=== PATIENT | male | born 1950 | race African-American/Black ===

== ENCOUNTER 2018-06-14 16:41 | Inpatient (IN) | payer OTHER ==
[2018-06-14 19:35] VITALS: BMI 29.2
--- NOTE | 2018-06-14 20:02 | HP ---
CIWA Score Nausea/Vomitin-Mild Nausea/No Vomiting Muscle Tremors: 4-Moderate,w/Arms Extend Anxiety: 3 Agitation: 2 Paroxysmal Sweats: 2 Orientation: 0-Oriented Tacttile Disturbances: 0-None Auditory Disturbances: 0-None Visual Disturbances: 0-None Headache: 0-None Present CIWA-Ar Total Score: 12 - Admission Criteria OASAS Guidelines: Admission for Medically Managed Detox: Requires at least one of the followin. CIWA greater than 12 2. Seizures within the past 24 hours 3. Delirium tremens within the past 24 hours 4. Hallucinations within the past 24 hours 5. Acute intervention needed for co occurring medical disorder 6. Acute intervention needed for co occurring psychiatric disorder 7. Severe withdrawal that cannot be handled at a lower level of care (continued vomiting, continued diarrhea, abnormal vital signs) requiring intravenous medication and/or fluids 8. Patient presents the following: CIWA greater than 12 Admission Criteria Met: Admission criteria met Admission ROS S - [facility] Chief Complaint: here for alcohol detox 68 yo with h/o HTN here for alcohol detox. Says he was at [facility] detox about 2 weeks but did not follow through with outpt day treatment because he is homeless. Says he needs to go to rehab to stabilize recovery. Says he was in [facility] ER last night Pt states he has been drinking since age 15 and increased in severity for the last 20 years. Now drinking a pint of vodka and a six pack of beer. Had an episode of "black out", but no h/o seizures/DT's. SAys last drink last night and consistently for several days prior. Utox- BZO- was in ER last night, BRENNA- 0 DUR- no controlled meds MEd problems: HTN- atenolol 50mg CAD/AL with stent- on plavix 20mg qd, crestor 20mg, aspirin 81mg Allergies/Adverse Reactions: Allergies Allergy/AdvReac Type Severity Reaction Status Date / Time No Known Allergies Allergy Verified 06/14/18 20:04 - Ebola screening Have you traveled outside of the country in the last 21 days: No Have you had contact with anyone from an Ebola affected area: No Have you been sick,other than usual withdrawal symptoms: No Do you have a fever: No - Review of Systems Constitutional: No Symptoms Reported EENT: reports: No Symptoms Reported Respiratory: reports: No Symptoms reported Cardiac: reports: No Symptoms Reported GI: reports: No Symptoms Reported : reports: No Symptoms Reported Musculoskeletal: reports: No Symptoms Reported Integumentary: reports: No Symptoms Reported Neuro: reports: No Symptoms reported, Unsteady Gait Hematology: reports: No Symptoms Reported Psychiatric: reports: No Sypmtoms Reported Patient History - Patient Medical History Hx Cardiac Disorders: Yes (stent ) Hx Hypertension: Yes Hx Hypercholesterolemia: Yes - Patient Surgical History Hx Cardiac Surgery: Yes (cardiac cath with stent) - PPD History PPD to be Administered?: Yes - Smoking Cessation Smoking history: Former smoker Have you smoked in the past 12 months: No Initiated information on smoking cessation: No - Substance & Tx. History Hx Alcohol Use: Yes Hx Substance Use: No Substance Use Type: Alcohol Hx Substance Use Treatment: Yes - Substances Abused Alcohol Route: Oral Frequency: Daily Amount used: liquor- 1 pint, beer- 1 six pack Age of first use: 15 Date of Last Use: 06/13/18 Family Disease History - Family Disease History Family Disease History: Other: Mother (alcohol, depression) Admission Physical Exam [facility] - Vital Signs Vital Signs: Vital Signs - 24 hr 06/14/18 19:30 Temperature 98.7 F Pulse Rate 63 Respiratory 18 Rate Blood Pressure 132/81 - Physical General Appearance: Yes: Within Normal Limits HEENTM: Yes: Within Normal Limits Respiratory: Yes: Within Normal Limits Neck: Yes: Within Normal Limits Cardiology: Yes: Regular Rate, Murmur Abdominal: Yes: Within Normal Limits, Non Tender, Protuberent Genitourinary: Yes: Within Normal Limits Extremities: Yes: Other (dry skin, trace edema) Neurological: Yes: Within Normal Limits, health technical writer II-XII NML intact, Fully Oriented Integumentary: Yes: Within Normal Limits, Other (dry skin) Lymphatic: Yes: Within Normal Limits - Diagnostic (1) Alcohol use disorder Current Visit: Yes Status: Acute (2) HTN (hypertension) Current Visit: Yes Status: Acute (3) Stented coronary artery Current Visit: Yes Status: Acute (4) CAD (coronary artery disease) Current Visit: Yes Status: Acute (5) High cholesterol Current Visit: Yes Status: Acute BHS Breath Alcohol Content Breath Alcohol Content: 0 Urine Drug Screen - Results Drug Screen Negative: No Urine Drug Screen Results: BZO-Benzodiazepines Inpatient Rehab Admission - Rehab Decision to Admit Inpatient rehab admission?: No
[2018-06-14] MEDS ORDERED: ONDANSETRON *ODT* 4 MG TABLET SL PRN (20:17)
[2018-06-14] MEDS ORDERED: BISMUTH SUBSALICYLATE 524 MG/30 ML UD PO PRN (20:17)
[2018-06-14] MEDS ORDERED: MAGNESIUM CITRATE 300 ML BOTTLE PO PRN (20:17)
[2018-06-14] MEDS ORDERED: ACETAMINOPHEN 325 MG TABLET (FP) PO PRN ×2 (20:17)
[2018-06-14] MEDS ORDERED: hydrOXYzine PAMOATE 25 MG CAPSULE (FP) PO PRN (20:17)
[2018-06-14] MEDS ORDERED: METHOCARBAMOL 500 MG TABLET PO PRN (20:17)
[2018-06-14] MEDS ORDERED: MELATONIN 5 MG TABLETS PO PRN (20:17)
[2018-06-14] MEDS ORDERED: MAG HYDROX/AL HYDROX/SIMETH 30 ML UNIT-DOSE CUP PO PRN (20:17)
[2018-06-14] MEDS ORDERED: MAGNESIUM HYDROX 2400MG/30ML ORAL SUSPENSION 30 ML CUP PO PRN (20:17)
[2018-06-14] MEDS ORDERED: MENTHOL/PHENOL 1 EACH UD MM PRN (20:17)
[2018-06-14] MEDS ORDERED: IBUPROFEN 400 MG TABLET (FP) PO PRN (20:17)
[2018-06-14] MEDS ORDERED: ATENOLOL 50 MG TABLET (FP) PO ONE (23:00)
[2018-06-15 01:28] LABS: PH,URINE 5.5 (5.0-8.0); URINE APPEARANCE CLEAR; URINE BILIRUBIN NEGATIVE (NEGATIVE); URINE COLOR YELLOW; URINE GLUCOSE (UA) NEGATIVE (NEGATIVE); URINE KETONE NEGATIVE (NEGATIVE); URINE LEUK ESTERASE NEGATIVE (NEGATIVE); URINE NITRITE NEGATIVE (NEGATIVE); URINE PROTEIN NEGATIVE (NEGATIVE); URINE UROBILINOGEN 0.2 mg/dL (0.2-1.0)
[2018-06-15] MEDS ORDERED: chlordiazePOXIDE HCL 10 MG CAPSULE PO PRN (01:43)
[2018-06-15] MEDS: ROSUVASTATIN CA 20 MG TABLET (FP) PO SCH ×2 (02:05→22:26)
[2018-06-15] MEDS: THIAMINE HCL 100 MG TABLET (FP) PO SCH ×2 (02:06→22:26)
[2018-06-15] MEDS: chlordiazePOXIDE HCL 25 MG CAPSULE PO SCH ×3 (06:30→22:26)
[2018-06-15] MEDS: PRENATAL VITAMINS W/ FOLIC ACID TABLET (FP) PO SCH (10:16)
[2018-06-15] MEDS: ASPIRIN 81 MG CHEWABLE TABLETS PO SCH (10:16)
[2018-06-15] MEDS: CLOPIDOGREL BISULFATE 75 MG TABLET (FP) PO SCH (10:16)
--- NOTE | 2018-06-15 10:48 | PN ---
[facility] CIWA - CIWA Score Nausea/Vomitin-No Nausea/No Vomiting Muscle Tremors: 3 Anxiety: 2 Agitation: 3 Paroxysmal Sweats: 3 Orientation: 0-Oriented Tacttile Disturbances: 0-None Auditory Disturbances: 0-None Visual Disturbances: 0-None Headache: 0-None Present CIWA-Ar Total Score: 11 S Progress Note (SOAP) Subjective: shakes sweats interrupted sleep body aches/tired Objective: 06/15/18 10:48 Vital Signs Temperature 96.6 F L 06/15/18 09:50 Pulse Rate 72 06/15/18 09:50 Respiratory Rate 20 06/15/18 09:50 Blood Pressure 133/90 06/15/18 09:50 O2 Sat by Pulse Oximetry (%) Laboratory Tests 06/14/18 23:29 Urine Color Yellow Urine Appearance Clear Urine pH 5.5 Ur Specific [place] 1.008 L Urine Protein Negative Urine Glucose (UA) Negative Urine Ketones Negative Urine Blood Negative Urine Nitrite Negative Urine Bilirubin Negative Urine Urobilinogen 0.2 Ur Leukocyte Esterase Negative rest of labs pending aaox3 ambulating no acute distress Assessment: 06/15/18 10:50 withdrawal sx Plan: continue detox increase fluids labs pending
[2018-06-15 12:36] LABS: HEMATOCRIT 42.2 % (35.4-49); HEMOGLOBIN 14.3 GM/dL (11.7-16.9); MCH 30.5 pg (25.7-33.7); MCHC 33.9 g/dl (32.0-35.9); PLATELET COUNT 200 K/MM3 (134-434); RBC 4.69 M/mm3 (4.00-5.60); RDW 14.9 % (11.9-15.9)
[2018-06-15 12:54] LABS: ALBUMIN 3.3 g/dl (3.4-5.0); ALK PHOS 54 U/L (45-117); ANION GAP 9 MMOL/L (8-16); BILIRUBIN,TOTAL 0.4 mg/dL (0.2-1); BLOOD UREA NITROGEN 18 mg/dL (7-18); CALCIUM 9.2 mg/dL (8.5-10.1); CHLORIDE 106 mmol/L (98-107); CO2 27 mmol/L (21-32); CREATININE 1.3 mg/dL (0.55-1.3); GLUCOSE,RANDOM 112 mg/dL (74-106); POTASSIUM 4.1 mmol/L (3.5-5.1); SGOT/AST 35 U/L (15-37); SGPT/ALT 57 U/L (13-61); SODIUM 142 mmol/L (136-145); TOT PROT 6.6 g/dl (6.4-8.2)
[2018-06-16] MEDS: chlordiazePOXIDE 5 MG CAPSULE PO SCH ×3 (06:08→23:29)
[2018-06-16] MEDS: PRENATAL VITAMINS W/ FOLIC ACID TABLET (FP) PO SCH (11:04)
[2018-06-16] MEDS: ASPIRIN 81 MG CHEWABLE TABLETS PO SCH (11:04)
[2018-06-16] MEDS: CLOPIDOGREL BISULFATE 75 MG TABLET (FP) PO SCH (11:04)
--- NOTE | 2018-06-16 11:52 | EKG ---
Test Reason : Blood Pressure : / mmHG Vent. Rate : 071 BPM Atrial Rate : 071 BPM P-R Int : 176 ms QRS Dur : 078 ms QT Int : 432 ms P-R-T Axes : 065 035 180 degrees QTc Int : 469 ms NORMAL SINUS RHYTHM POSSIBLE LEFT ATRIAL ENLARGEMENT T WAVE ABNORMALITY, CONSIDER INFERIOR ISCHEMIA T WAVE ABNORMALITY, CONSIDER ANTEROLATERAL ISCHEMIA PROLONGED QT ABNORMAL ECG NO PREVIOUS ECGS AVAILABLE Confirmed by MAXIMO GALEANO, GUILLERMO ([id number]) on 06/16/2018 11:52:06 AM Referred By: Confirmed By:GUILLERMO MARSH MD
--- NOTE | 2018-06-16 11:52 | EKG ---
Test Reason : Blood Pressure : / mmHG Vent. Rate : 075 BPM Atrial Rate : 075 BPM P-R Int : 180 ms QRS Dur : 076 ms QT Int : 410 ms P-R-T Axes : 066 037 154 degrees QTc Int : 457 ms NORMAL SINUS RHYTHM POSSIBLE LEFT ATRIAL ENLARGEMENT T WAVE ABNORMALITY, CONSIDER ANTEROLATERAL ISCHEMIA ABNORMAL ECG WHEN COMPARED WITH ECG OF 15-JUN-2018 00:10, NONSPECIFIC T WAVE ABNORMALITY HAS REPLACED INVERTED T WAVES IN INFERIOR LEADS Confirmed by MAXIMO GALEANO, GUILLERMO ([id number]) on 06/16/2018 11:51:59 AM Referred By: LUCILLE BATES Confirmed By:GUILLERMO MARSH MD
--- NOTE | 2018-06-16 12:03 | PN ---
S CIWA - CIWA Score Nausea/Vomitin Muscle Tremors: 2 Anxiety: 2 Agitation: 2 Paroxysmal Sweats: 1-Minimal Palms Moist Orientation: 0-Oriented Tacttile Disturbances: 1-Very Mild Itch/Numbness Auditory Disturbances: 1-Very Mild Visual Disturbances: 0-None Headache: 2-Mild CIWA-Ar Total Score: 13 BHS Progress Note (SOAP) Subjective: alert,irritable,anxious,interrupted sleep, Objective: 06/16/18 12:01 Vital Signs Temperature 97.2 F L 06/16/18 09:29 Pulse Rate 74 06/16/18 09:29 Respiratory Rate 18 06/16/18 09:29 Blood Pressure 152/84 06/16/18 09:29 O2 Sat by Pulse Oximetry (%) Assessment: 06/16/18 12:02 Laboratory Last Values WBC 6.0 K/mm3 (4.0-10.0) 06/15/18 08:00 RBC 4.69 M/mm3 (4.00-5.60) 06/15/18 08:00 Hgb 14.3 GM/dL (11.7-16.9) 06/15/18 08:00 Hct 42.2 % (35.4-49) 06/15/18 08:00 MCV 90.0 fl (80-96) 06/15/18 08:00 MCH 30.5 pg (25.7-33.7) 06/15/18 08:00 MCHC 33.9 g/dl (32.0-35.9) 06/15/18 08:00 RDW 14.9 % (11.9-15.9) 06/15/18 08:00 Plt Count 200 K/MM3 (134-434) 06/15/18 08:00 MPV 9.0 fl (7.5-11.1) 06/15/18 08:00 Sodium 142 mmol/L (136-145) 06/15/18 08:00 Potassium 4.1 mmol/L (3.5-5.1) 06/15/18 08:00 Chloride 106 mmol/L (98-107) 06/15/18 08:00 Carbon Dioxide 27 mmol/L (21-32) 06/15/18 08:00 Anion Gap 9 MMOL/L (8-16) 06/15/18 08:00 BUN 18 mg/dL (7-18) 06/15/18 08:00 Creatinine 1.3 mg/dL (0.55-1.3) 06/15/18 08:00 Creat Clearance w eGFR 54.90 (>60) 06/15/18 08:00 Random Glucose 112 mg/dL (74-106) H 06/15/18 08:00 Calcium 9.2 mg/dL (8.5-10.1) 06/15/18 08:00 Total Bilirubin 0.4 mg/dL (0.2-1) 06/15/18 08:00 AST 35 U/L (15-37) 06/15/18 08:00 ALT 57 U/L (13-61) 06/15/18 08:00 Alkaline Phosphatase 54 U/L (45-117) 06/15/18 08:00 Total Protein 6.6 g/dl (6.4-8.2) 06/15/18 08:00 Albumin 3.3 g/dl (3.4-5.0) L 06/15/18 08:00 Urine Color Yellow 06/14/18 23:29 Urine Appearance Clear 06/14/18 23:29 Urine pH 5.5 (5.0-8.0) 06/14/18 23:29 Ur Specific [place] 1.008 (1.010-1.035) L 06/14/18 23:29 Urine Protein Negative (NEGATIVE) 06/14/18 23:29 Urine Glucose (UA) Negative (NEGATIVE) 06/14/18 23:29 Urine Ketones Negative (NEGATIVE) 06/14/18 23:29 Urine Blood Negative (NEGATIVE) 06/14/18 23:29 Urine Nitrite Negative (NEGATIVE) 06/14/18 23:29 Urine Bilirubin Negative (NEGATIVE) 06/14/18 23: Urine Urobilinogen 0.2 mg/dL (0.2-1.0) 06/14/18 23:29 Ur Leukocyte Esterase Negative (NEGATIVE) 06/14/18 23:29 RPR Titer Nonreactive (NONREACTIVE) 06/15/18 08:00 06/16/18 12:02 withdrawal symptom Plan: continue detox
[2018-06-16] MEDS: THIAMINE HCL 100 MG TABLET (FP) PO SCH (23:29)
[2018-06-16] MEDS: ROSUVASTATIN CA 20 MG TABLET (FP) PO SCH (23:29)
[2018-06-17] MEDS ORDERED: chlordiazePOXIDE HCL 10 MG CAPSULE PO PRN (05:00)
[2018-06-17] MEDS: chlordiazePOXIDE HCL 10 MG CAPSULE PO SCH ×3 (05:31→22:32)
[2018-06-17] MEDS: CLOPIDOGREL BISULFATE 75 MG TABLET (FP) PO SCH (10:17)
[2018-06-17] MEDS: ASPIRIN 81 MG CHEWABLE TABLETS PO SCH (10:17)
[2018-06-17] MEDS: PRENATAL VITAMINS W/ FOLIC ACID TABLET (FP) PO SCH (10:17)
--- NOTE | 2018-06-17 10:37 | PN ---
S Progress Note (SOAP) Subjective: alert,irritable,anxious,interrupted sleep, Objective: 06/17/18 10:36 Vital Signs Temperature 97.5 F L 06/17/18 09:58 Pulse Rate 78 06/17/18 09:58 Respiratory Rate 18 06/17/18 09:58 Blood Pressure 137/73 06/17/18 09:58 O2 Sat by Pulse Oximetry (%) Assessment: 06/17/18 10:36 withdrawal symptom Plan: continue detox,discharge in am
[2018-06-17] MEDS: THIAMINE HCL 100 MG TABLET (FP) PO SCH (22:32)
[2018-06-17] MEDS: ROSUVASTATIN CA 20 MG TABLET (FP) PO SCH (23:31)
[2018-06-18] MEDS: chlordiazePOXIDE HCL 10 MG CAPSULE PO SCH (06:37)
[2018-06-18 09:41] VITALS: BP 144/89; PULSE 82; TEMP 97.7
[2018-06-18] MEDS: PRENATAL VITAMINS W/ FOLIC ACID TABLET (FP) PO SCH (10:52)
[2018-06-18] MEDS: ASPIRIN 81 MG CHEWABLE TABLETS PO SCH (10:52)
[2018-06-18] MEDS: CLOPIDOGREL BISULFATE 75 MG TABLET (FP) PO SCH (10:52)
--- NOTE | 2018-06-18 13:25 | DS ---
[facility] Detox Discharge Summary Admission Date: 06/14/18 Discharge Date: 06/18/18 - History Present History: Alcohol Dependence Pertinent Past History: HTN, CAD,HLD - Physical Exam Results Vital Signs: Vital Signs Temperature 97.7 F 06/18/18 09:41 Pulse Rate 82 06/18/18 09:41 Respiratory Rate 18 06/18/18 09:41 Blood Pressure 144/89 06/18/18 09:41 O2 Sat by Pulse Oximetry (%) Pertinent Admission Physical Exam Findings: Withdrawal sx Laboratory Last Values WBC 6.0 K/mm3 (4.0-10.0) 06/15/18 08:00 RBC 4.69 M/mm3 (4.00-5.60) 06/15/18 08:00 Hgb 14.3 GM/dL (11.7-16.9) 06/15/18 08:00 Hct 42.2 % (35.4-49) 06/15/18 08:00 MCV 90.0 fl (80-96) 06/15/18 08:00 MCH 30.5 pg (25.7-33.7) 06/15/18 08:00 MCHC 33.9 g/dl (32.0-35.9) 06/15/18 08:00 RDW 14.9 % (11.9-15.9) 06/15/18 08:00 Plt Count 200 K/MM3 (134-434) 06/15/18 08:00 MPV 9.0 fl (7.5-11.1) 06/15/18 08:00 Sodium 142 mmol/L (136-145) 06/15/18 08:00 Potassium 4.1 mmol/L (3.5-5.1) 06/15/18 08:00 Chloride 106 mmol/L (98-107) 06/15/18 08:00 Carbon Dioxide 27 mmol/L (21-32) 06/15/18 08:00 Anion Gap 9 MMOL/L (8-16) 06/15/18 08:00 BUN 18 mg/dL (7-18) 06/15/18 08:00 Creatinine 1.3 mg/dL (0.55-1.3) 06/15/18 08:00 Creat Clearance w eGFR 54.90 (>60) 06/15/18 08:00 Random Glucose 112 mg/dL (74-106) H 06/15/18 08:00 Calcium 9.2 mg/dL (8.5-10.1) 06/15/18 08:00 Total Bilirubin 0.4 mg/dL (0.2-1) 06/15/18 08:00 AST 35 U/L (15-37) 06/15/18 08:00 ALT 57 U/L (13-61) 06/15/18 08:00 Alkaline Phosphatase 54 U/L (45-117) 06/15/18 08:00 Total Protein 6.6 g/dl (6.4-8.2) 06/15/18 08:00 Albumin 3.3 g/dl (3.4-5.0) L 06/15/18 08:00 Urine Color Yellow 06/14/18 23:29 Urine Appearance Clear 06/14/18 23:29 Urine pH 5.5 (5.0-8.0) 06/14/18 23:29 Ur Specific [place] 1.008 (1.010-1.035) L 06/14/18 23:29 Urine Protein Negative (NEGATIVE) 06/14/18 23:29 Urine Glucose (UA) Negative (NEGATIVE) 06/14/18 23:29 Urine Ketones Negative (NEGATIVE) 06/14/18 23:29 Urine Blood Negative (NEGATIVE) 06/14/18 23:29 Urine Nitrite Negative (NEGATIVE) 06/14/18 23:29 Urine Bilirubin Negative (NEGATIVE) 06/14/18 23:29 Urine Urobilinogen 0.2 mg/dL (0.2-1.0) 06/14/18 23:29 Ur Leukocyte Esterase Negative (NEGATIVE) 06/14/18 23:29 RPR Titer Nonreactive (NONREACTIVE) 06/15/18 08:00 Labs noted - Treatment Hospital Course: Detox Protocol Followed, Detoxed Safely, Responded well, Discharged Condition Good, Rehab Referral Accepted - Medication Discharge Medications: Ambulatory Orders NK [No Known Home Medication] 06/14/18 - Diagnosis (1) Alcohol use disorder Status: Acute (2) CAD (coronary artery disease) Status: Chronic Qualifiers: Coronary Disease-Associated Artery/Lesion type: gambell artery [place] vs. transplanted heart: gambell heart Associated angina: without angina Qualified Code(s): I25.10 - Atherosclerotic heart disease of gambell coronary artery without angina pectoris (3) HTN (hypertension) Status: Chronic Qualifiers: Hypertension type: essential hypertension Qualified Code(s): I10 - Essential (primary) hypertension (4) High cholesterol Status: Acute - AMA Did Patient Leave Against Medical Advice: No
== END 2018-06-18 11:18 | disposition other institution (70) | DRG 897 ==
LOC: YASAS 16:41 → Y6N 23:22
PROVIDERS: ADMIT Surgery; ATTEND Surgery
PROC: HZ2ZZZZ Detoxification Services for Substance Abuse Treatment (ICD-10-PCS; principal; 2018-06-14)
DX: F10.230 Alcohol dependence with withdrawal, uncomplicated (principal); I25.10 Atherosclerotic heart disease of native coronary artery without angina pectoris; I10 Essential (primary) hypertension; Z95.5 Presence of coronary angioplasty implant and graft; E78.5 Hyperlipidemia, unspecified
CPT/HCPCS: 36415; 80053; 81003; 85027; 86593; 93005; 93010

== ENCOUNTER 2018-06-18 11:26 | Inpatient (IN) | payer OTHER ==
[2018-06-18] MEDS ORDERED: ACETAMINOPHEN 325 MG TABLET (FP) PO PRN (12:01)
[2018-06-18] MEDS ORDERED: IBUPROFEN 400 MG TABLET (FP) PO PRN (12:01)
[2018-06-18] MEDS ORDERED: MAG HYDROX/AL HYDROX/SIMETH 30 ML UNIT-DOSE CUP PO PRN (12:01)
[2018-06-18] MEDS ORDERED: guaiFENesin 200 MG/10 ML 10 ML UNIT-DOSE CUPS PO PRN (12:01)
[2018-06-18] MEDS ORDERED: LOPERAMIDE HCL 2 MG CAPSULE PO PRN (12:01)
[2018-06-18] MEDS ORDERED: hydrOXYzine PAMOATE 50 MG CAPSULE (FP) PO PRN (12:01)
[2018-06-18] MEDS ORDERED: MENTHOL/PHENOL 1 EACH UD MM PRN (12:01)
[2018-06-18] MEDS ORDERED: MAGNESIUM CITRATE 300 ML BOTTLE PO PRN (12:01)
[2018-06-18] MEDS ORDERED: MAGNESIUM HYDROX 2400MG/30ML ORAL SUSPENSION 30 ML CUP PO PRN (12:01)
[2018-06-18] MEDS ORDERED: P-EPHED 60MG/TRIPROLIDI 2.5MG TABLET PO PRN (12:01)
--- NOTE | 2018-06-18 12:01 | HP ---
TANISHA GALEANO Rehab Assess/Revision - Admission History Admitted to Rehab from: [facility] Date of Admission to Rehab: 06/18/18 - Vital signs Vital Signs: Vital Signs Period Temp Pulse Resp BP Sys/Mejia Pulse Ox Last 24 Hr 97.7 F 74 18 140/93 - Findings Detox History & Physical reviewed: Yes Concur with findings: Yes Comments/Additional Findings: for rehab as protocol Inpatient Rehab Admission - Rehab Decision to Admit Inpatient rehab admission?: Yes - Initial Determination Are CD services needed?: Yes Free of communicable disease: Yes Not in need of hospitalization: Yes - Rehab Admission Criteria Previous failed treatment: Yes Poor recovery environment: Yes Comorbidities: Yes Lacks judgement: No Patient is meeting Inpatient Rehab admission criteria:: Yes
[2018-06-18] MEDS: ROSUVASTATIN CA 20 MG TABLET (FP) PO SCH (21:55)
[2018-06-18] MEDS: THIAMINE HCL 100 MG TABLET (FP) PO SCH (21:55)
[2018-06-18] MEDS: MELATONIN 5 MG TABLETS PO PRN (21:56)
[2018-06-19] MEDS: CLOPIDOGREL BISULFATE 75 MG TABLET (FP) PO SCH (10:12)
[2018-06-19] MEDS: PRENATAL VITAMINS W/ FOLIC ACID TABLET (FP) PO SCH (10:12)
[2018-06-19] MEDS: ASPIRIN 81 MG CHEWABLE TABLETS PO SCH (10:12)
[2018-06-19] MEDS: THIAMINE HCL 100 MG TABLET (FP) PO SCH (22:04)
[2018-06-19] MEDS: ROSUVASTATIN CA 20 MG TABLET (FP) PO SCH (22:04)
[2018-06-20] MEDS: PRENATAL VITAMINS W/ FOLIC ACID TABLET (FP) PO SCH (11:01)
[2018-06-20] MEDS: ASPIRIN 81 MG CHEWABLE TABLETS PO SCH (11:01)
[2018-06-20] MEDS: CLOPIDOGREL BISULFATE 75 MG TABLET (FP) PO SCH (11:01)
[2018-06-20] MEDS: LISINOPRIL 5 MG TABLET (FP) PO SCH (14:13)
[2018-06-20] MEDS: ATENOLOL 50 MG TABLET (FP) PO SCH (14:14)
[2018-06-20] MEDS: ROSUVASTATIN CA 20 MG TABLET (FP) PO SCH (21:51)
[2018-06-20] MEDS: ATORVASTATIN CA 10 MG TABLET (FP) PO SCH (21:51)
[2018-06-20] MEDS: THIAMINE HCL 100 MG TABLET (FP) PO SCH (21:51)
[2018-06-21] MEDS: LISINOPRIL 5 MG TABLET (FP) PO SCH (10:43)
[2018-06-21] MEDS: ASPIRIN 81 MG CHEWABLE TABLETS PO SCH (10:43)
[2018-06-21] MEDS: CLOPIDOGREL BISULFATE 75 MG TABLET (FP) PO SCH (10:43)
[2018-06-21] MEDS: ATENOLOL 50 MG TABLET (FP) PO SCH (10:43)
[2018-06-21] MEDS: PRENATAL VITAMINS W/ FOLIC ACID TABLET (FP) PO SCH (10:43)
[2018-06-21] MEDS: ATORVASTATIN CA 10 MG TABLET (FP) PO SCH (22:14)
[2018-06-21] MEDS: ROSUVASTATIN CA 20 MG TABLET (FP) PO SCH (22:14)
[2018-06-21] MEDS: THIAMINE HCL 100 MG TABLET (FP) PO SCH (22:14)
[2018-06-22] MEDS: ATENOLOL 50 MG TABLET (FP) PO SCH (10:33)
[2018-06-22] MEDS: CLOPIDOGREL BISULFATE 75 MG TABLET (FP) PO SCH (10:33)
[2018-06-22] MEDS: PRENATAL VITAMINS W/ FOLIC ACID TABLET (FP) PO SCH (10:33)
[2018-06-22] MEDS: ASPIRIN 81 MG CHEWABLE TABLETS PO SCH (10:33)
[2018-06-22] MEDS: LISINOPRIL 5 MG TABLET (FP) PO SCH (10:33)
[2018-06-22] MEDS ORDERED: FUROSEMIDE 20 MG TABLET (FP) PO ONE (15:13)
--- NOTE | 2018-06-22 15:16 | PN ---
[facility] Progress Note Note: PT C/O BILATERAL LOWER EXTREMITY EDEMA. REPORTS HE HAS HAD IT MORE THAN 3-4 DAYS INCLUDING WHILE IN DETOX. REPORTS HE HAS EXPERIENCED LEG EDEMA AT OTHER TIMES BEFORE. PT COMPLETED DETOX ON 06/18/18 AND WAS ADMITTED TO REHAB ON . PT HAS A HX HTN, CAD, HYPERCHOLESTEROLEMIA AND STENTED ARTERY(2016). DENIES C/P, NAUSEA, VOMITING OR DIZZINESS. DENIES PAIN TO EXTREMITIES. PT REPORTS HE HAS A PMD, DR. SANTIAGO ON [facility]. Vital Signs (72 hours) 06/20/18 06/20/18 06/20/18 00:30 03:30 07:13 Temperature 97.5 F L Pulse Rate 72 Respiratory 18 18 18 Rate Blood Pressure 139/91 06/20/18 06/20/18 06/21/18 10:00 14:17 00:30 Temperature Pulse Rate 83 77 Respiratory 18 18 18 Rate Blood Pressure 144/64 138/83 06/21/18 06/22/18 06/22/18 06:56 00:30 03:30 Temperature 98.1 F Pulse Rate 69 Respiratory 18 18 18 Rate Blood Pressure 128/80 06/22/18 07:07 Temperature 98.2 F Pulse Rate 72 Respiratory 18 Rate Blood Pressure 135/92 LOWER EXTREMITIES: BILATERAL LOWER LEG EDEMA. COOL TO TOUCH, NO REDNESS. PEDAL PULSES (2+). PLAN:PT WILL FOLLOW UP WITH HIS PMD ABOVE AND HIS [facility] INSTALLER AFTER REHAB. LASIX 20 MG PO NOW AND DAILY ELEVATE BOTH LEGS WHILE IN BED RE-EVALUATE PT STATUS AND EFFECTIVENESS OF TX.
[2018-06-22] MEDS: MELATONIN 5 MG TABLETS PO PRN (21:35)
[2018-06-22] MEDS: ATORVASTATIN CA 10 MG TABLET (FP) PO SCH (21:35)
[2018-06-22] MEDS: ROSUVASTATIN CA 20 MG TABLET (FP) PO SCH (21:35)
[2018-06-22] MEDS: THIAMINE HCL 100 MG TABLET (FP) PO SCH (21:35)
[2018-06-23] MEDS: LISINOPRIL 5 MG TABLET (FP) PO SCH (10:18)
[2018-06-23] MEDS: ASPIRIN 81 MG CHEWABLE TABLETS PO SCH (10:18)
[2018-06-23] MEDS: CLOPIDOGREL BISULFATE 75 MG TABLET (FP) PO SCH (10:18)
[2018-06-23] MEDS: PRENATAL VITAMINS W/ FOLIC ACID TABLET (FP) PO SCH (10:18)
[2018-06-23] MEDS: ATENOLOL 50 MG TABLET (FP) PO SCH (10:18)
[2018-06-23] MEDS: FUROSEMIDE 20 MG TABLET (FP) PO SCH (10:18)
[2018-06-23] MEDS: ATORVASTATIN CA 10 MG TABLET (FP) PO SCH (21:46)
[2018-06-23] MEDS: ROSUVASTATIN CA 20 MG TABLET (FP) PO SCH (21:46)
[2018-06-23] MEDS: THIAMINE HCL 100 MG TABLET (FP) PO SCH (21:46)
[2018-06-23] MEDS: MELATONIN 5 MG TABLETS PO PRN (21:47)
[2018-06-24] MEDS: PRENATAL VITAMINS W/ FOLIC ACID TABLET (FP) PO SCH (10:14)
[2018-06-24] MEDS: ATENOLOL 50 MG TABLET (FP) PO SCH (10:14)
[2018-06-24] MEDS: ASPIRIN 81 MG CHEWABLE TABLETS PO SCH (10:14)
[2018-06-24] MEDS: CLOPIDOGREL BISULFATE 75 MG TABLET (FP) PO SCH (10:14)
[2018-06-24] MEDS: LISINOPRIL 5 MG TABLET (FP) PO SCH (10:14)
[2018-06-24] MEDS: FUROSEMIDE 20 MG TABLET (FP) PO SCH (10:14)
[2018-06-24] MEDS: THIAMINE HCL 100 MG TABLET (FP) PO SCH (21:47)
[2018-06-24] MEDS: ROSUVASTATIN CA 20 MG TABLET (FP) PO SCH (21:47)
[2018-06-24] MEDS: ATORVASTATIN CA 10 MG TABLET (FP) PO SCH (21:47)
[2018-06-24] MEDS: MELATONIN 5 MG TABLETS PO PRN (21:47)
[2018-06-25] MEDS: ASPIRIN 81 MG CHEWABLE TABLETS PO SCH (10:34)
[2018-06-25] MEDS: PRENATAL VITAMINS W/ FOLIC ACID TABLET (FP) PO SCH (10:34)
[2018-06-25] MEDS: CLOPIDOGREL BISULFATE 75 MG TABLET (FP) PO SCH (10:34)
[2018-06-25] MEDS: ATENOLOL 50 MG TABLET (FP) PO SCH (10:34)
[2018-06-25] MEDS: LISINOPRIL 5 MG TABLET (FP) PO SCH (10:34)
[2018-06-25] MEDS: FUROSEMIDE 20 MG TABLET (FP) PO SCH (10:35)
[2018-06-25] MEDS: MELATONIN 5 MG TABLETS PO PRN (21:46)
[2018-06-25] MEDS: THIAMINE HCL 100 MG TABLET (FP) PO SCH (21:46)
[2018-06-25] MEDS: ROSUVASTATIN CA 20 MG TABLET (FP) PO SCH (21:46)
[2018-06-25] MEDS: ATORVASTATIN CA 10 MG TABLET (FP) PO SCH (21:46)
[2018-06-26] MEDS: LISINOPRIL 5 MG TABLET (FP) PO SCH (10:41)
[2018-06-26] MEDS: FUROSEMIDE 20 MG TABLET (FP) PO SCH (10:41)
[2018-06-26] MEDS: ASPIRIN 81 MG CHEWABLE TABLETS PO SCH (10:41)
[2018-06-26] MEDS: CLOPIDOGREL BISULFATE 75 MG TABLET (FP) PO SCH (10:41)
[2018-06-26] MEDS: PRENATAL VITAMINS W/ FOLIC ACID TABLET (FP) PO SCH (10:41)
[2018-06-26] MEDS: ATENOLOL 50 MG TABLET (FP) PO SCH (10:41)
[2018-06-26] MEDS: ROSUVASTATIN CA 20 MG TABLET (FP) PO SCH (21:42)
[2018-06-26] MEDS: THIAMINE HCL 100 MG TABLET (FP) PO SCH (21:42)
[2018-06-26] MEDS: ATORVASTATIN CA 10 MG TABLET (FP) PO SCH (21:42)
[2018-06-26] MEDS: MELATONIN 5 MG TABLETS PO PRN (21:42)
[2018-06-27] MEDS: ASPIRIN 81 MG CHEWABLE TABLETS PO SCH (11:04)
[2018-06-27] MEDS: PRENATAL VITAMINS W/ FOLIC ACID TABLET (FP) PO SCH (11:04)
[2018-06-27] MEDS: LISINOPRIL 5 MG TABLET (FP) PO SCH (11:04)
[2018-06-27] MEDS: ATENOLOL 50 MG TABLET (FP) PO SCH (11:04)
[2018-06-27] MEDS: CLOPIDOGREL BISULFATE 75 MG TABLET (FP) PO SCH (11:05)
[2018-06-27] MEDS: FUROSEMIDE 20 MG TABLET (FP) PO SCH (11:05)
[2018-06-27] MEDS: ROSUVASTATIN CA 20 MG TABLET (FP) PO SCH (21:51)
[2018-06-27] MEDS: THIAMINE HCL 100 MG TABLET (FP) PO SCH (21:51)
[2018-06-27] MEDS: ATORVASTATIN CA 10 MG TABLET (FP) PO SCH (21:51)
[2018-06-28] MEDS: ATENOLOL 50 MG TABLET (FP) PO SCH (10:32)
[2018-06-28] MEDS: FUROSEMIDE 20 MG TABLET (FP) PO SCH (10:32)
[2018-06-28] MEDS: ASPIRIN 81 MG CHEWABLE TABLETS PO SCH (10:32)
[2018-06-28] MEDS: CLOPIDOGREL BISULFATE 75 MG TABLET (FP) PO SCH (10:32)
[2018-06-28] MEDS: PRENATAL VITAMINS W/ FOLIC ACID TABLET (FP) PO SCH (10:32)
[2018-06-28] MEDS: LISINOPRIL 5 MG TABLET (FP) PO SCH (10:32)
[2018-06-28] MEDS: ATORVASTATIN CA 10 MG TABLET (FP) PO SCH (21:43)
[2018-06-28] MEDS: THIAMINE HCL 100 MG TABLET (FP) PO SCH (21:43)
[2018-06-28] MEDS: ROSUVASTATIN CA 20 MG TABLET (FP) PO SCH (21:43)
[2018-06-29] MEDS: ASPIRIN 81 MG CHEWABLE TABLETS PO SCH (10:44)
[2018-06-29] MEDS: PRENATAL VITAMINS W/ FOLIC ACID TABLET (FP) PO SCH (10:44)
[2018-06-29] MEDS: ATENOLOL 50 MG TABLET (FP) PO SCH (10:44)
[2018-06-29] MEDS: CLOPIDOGREL BISULFATE 75 MG TABLET (FP) PO SCH (10:44)
[2018-06-29] MEDS: FUROSEMIDE 20 MG TABLET (FP) PO SCH (10:44)
[2018-06-29] MEDS: LISINOPRIL 5 MG TABLET (FP) PO SCH (10:45)
[2018-06-29] MEDS: ROSUVASTATIN CA 20 MG TABLET (FP) PO SCH (21:10)
[2018-06-29] MEDS: ATORVASTATIN CA 10 MG TABLET (FP) PO SCH (21:10)
[2018-06-29] MEDS: THIAMINE HCL 100 MG TABLET (FP) PO SCH (21:10)
[2018-06-29] MEDS: MELATONIN 5 MG TABLETS PO PRN (21:11)
[2018-06-30] MEDS: LISINOPRIL 5 MG TABLET (FP) PO SCH (10:07)
[2018-06-30] MEDS: ASPIRIN 81 MG CHEWABLE TABLETS PO SCH (10:07)
[2018-06-30] MEDS: PRENATAL VITAMINS W/ FOLIC ACID TABLET (FP) PO SCH (10:07)
[2018-06-30] MEDS: ATENOLOL 50 MG TABLET (FP) PO SCH (10:08)
[2018-06-30] MEDS: FUROSEMIDE 20 MG TABLET (FP) PO SCH (10:08)
[2018-06-30] MEDS: CLOPIDOGREL BISULFATE 75 MG TABLET (FP) PO SCH (10:08)
[2018-06-30] MEDS: MELATONIN 5 MG TABLETS PO PRN (21:46)
[2018-06-30] MEDS: ROSUVASTATIN CA 20 MG TABLET (FP) PO SCH (21:46)
[2018-06-30] MEDS: THIAMINE HCL 100 MG TABLET (FP) PO SCH (21:46)
[2018-06-30] MEDS: ATORVASTATIN CA 10 MG TABLET (FP) PO SCH (21:46)
[2018-07-01 07:12] VITALS: BP 151/93; PULSE 70; TEMP 97.9
[2018-07-01] MEDS: PRENATAL VITAMINS W/ FOLIC ACID TABLET (FP) PO SCH (10:07)
[2018-07-01] MEDS: FUROSEMIDE 20 MG TABLET (FP) PO SCH (10:07)
[2018-07-01] MEDS: CLOPIDOGREL BISULFATE 75 MG TABLET (FP) PO SCH (10:07)
[2018-07-01] MEDS: ATENOLOL 50 MG TABLET (FP) PO SCH (10:07)
[2018-07-01] MEDS: ASPIRIN 81 MG CHEWABLE TABLETS PO SCH (10:07)
[2018-07-01] MEDS: LISINOPRIL 5 MG TABLET (FP) PO SCH (10:07)
--- NOTE | 2018-07-01 10:34 | PN ---
[facility] Progress Note Note: PT COMPLETED REHAB AND DISCHARGED TODAY. PT MET WITH HIS COUNSELOR, MS DIANE YOUNG AND REFERRED TO [facility] CD AFTERCARE PROGRAM ON [address], [place]. PT REPORTS HE HAS A PCP DR. SANTIAGO ON [facility]/[place], [place] FOR MEDICAL MANAGEMENT. PT REPORTS HE IS SEEING HIS PMD AND A FOLLOW UP WITH THE CARDILIOLOGIST AFTER HE LEAVES HERE TODAY. REPORTS HE HAS ALL HIS RX WAITING AT HIS PHARMACY AND WILL BAR ROLLER AFTER DISCHARGE. ALERT O X 3. DENIES S /H/I. Home Medications Medication Instructions Recorded Atenolol [Tenormin -] 50 mg PO DAILY 06/20/18 Clopidogrel Bisulfate [Plavix] 75 mg PO DAILY 06/20/18 Lisinopril [Zestril] 2.5 mg PO DAILY 06/20/18 Simvastatin 20 mg PO DAILY 06/20/18 Vital Signs - 24 hr 07/01/18 07/01/18 07/01/18 00:30 03:30 07:11 Temperature 97.9 F Pulse Rate 70 Respiratory 18 18 18 Rate Blood Pressure 151/93 NAD MEDICALLY STABLE PLAN:FOLLOW UP WITH CD AFTERCARE RECOMMENDATION FOLLOW UP WITH PCP INDICATED TODAY AFTER DISCHARGE. FOLLOW UP WITH CARDIOLOGY APPOINTMENTS SCHEDULED. All Active Problems DX; Alcohol use disorder (Chronic) High cholesterol (Chronic) Stented coronary artery (Chronic) CAD (coronary artery disease) (Chronic) HTN (hypertension) (Chronic) Pedal Edema,Bilat(Acute)
== END 2018-07-01 11:20 | disposition home or self-care (01) | DRG 895 ==
LOC: YASAS 11:26 → Y5N 11:27
PROVIDERS: ADMIT Neuromusculoskeletal Medicine & OMM; ATTEND Neuromusculoskeletal Medicine & OMM
PROC: HZ42ZZZ Group Counseling for Substance Abuse Treatment, Cognitive-Behavioral (ICD-10-PCS; principal; 2018-06-18)
DX: F10.20 Alcohol dependence, uncomplicated (principal); I10 Essential (primary) hypertension; I25.10 Atherosclerotic heart disease of native coronary artery without angina pectoris; E78.00 Pure hypercholesterolemia, unspecified; R60.9 Edema, unspecified; R01.1 Cardiac murmur, unspecified; Z87.891 Personal history of nicotine dependence; Z95.5 Presence of coronary angioplasty implant and graft